=== PATIENT | male | born 1985 | race Caucasian/White ===

== ENCOUNTER → 2016-11-22 | Outpatient (CLI) | payer BC ==
[2016-11-22 10:19] LABS: HEMOGLOBIN A1C 5.35 % (4.2-6.0); MEAN BLOOD GLUCOSE (CALC) 92.155 mg/dL
[2016-11-25 10:24] LABS: LDL CHOLESTEROL,CALCULATED 110.6 mg/dL
== END ==
LOC: LAB 09:02
PROVIDERS: ATTEND Family Medicine
DX: Z02.6 Encounter for examination for insurance purposes (principal); F17.220 Nicotine dependence, chewing tobacco, uncomplicated
CPT/HCPCS: 36415; 80061; 82465; 82947; 83036; 83701; 83718; 84478